=== PATIENT | female | born 1970 | race Caucasian/White ===

== ENCOUNTER 2018-08-05 16:46 | Emergency (ER) | payer OTHER ==
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
[2018-08-05 18:14] VITALS: BP 148/93
== END 2018-08-05 18:17 | disposition home or self-care (01) ==
LOC: EEVIPCON 16:46
DX: S16.1XXA Strain of muscle, fascia and tendon at neck level, initial encounter (principal); S39.012A Strain of muscle, fascia and tendon of lower back, initial encounter; M50.322 Other cervical disc degeneration at C5-C6 level; M62.830 Muscle spasm of back; V49.49XA Driver injured in collision with other motor vehicles in traffic accident, initial encounter; Y92.410 Unspecified street and highway as the place of occurrence of the external cause